=== PATIENT | male | born 1985 | race Caucasian/White ===

== ENCOUNTER → 2021-10-27 | Outpatient (CLI) | payer OTHER ==
[~2021-10-27] MED LIST: MUSCLE RELAXER; NORCO 325 MG-51 TAB PO; PERCOCET 325 MG1 TA2 PO; PROMETHAZINE12.5 M5 PO; ULTRAM 50MG TAB50 MG PO; VIVLODEX5 MG PO
== END ==
LOC: MHCPAIN 10:15
DX: M47.812 Spondylosis without myelopathy or radiculopathy, cervical region (principal); M54.2 Cervicalgia; M54.81 Occipital neuralgia
CPT/HCPCS: G0463

== ENCOUNTER → 2023-09-19 | Outpatient (CLI) | payer OTHER | LOC: MHCPAIN 12:54 | DX: M47.812 Spondylosis without myelopathy or radiculopathy, cervical region (principal); M54.81 Occipital neuralgia; M54.2 Cervicalgia | CPT/HCPCS: G0463 ==

== ENCOUNTER → 2023-10-06 | Outpatient (CLI) | payer OTHER ==
[~2023-10-06] MED LIST changes: +Iohexol 300 - 10 ML VIAL ONE; +Lidocaine PF 2% (20 MG/ML) 2 ML VIAL ONE
== END ==
LOC: MHCPAIN 09:38
DX: M54.12 Radiculopathy, cervical region (principal); M54.81 Occipital neuralgia; M54.2 Cervicalgia
CPT/HCPCS: J1100; Q9967

== ENCOUNTER → 2023-11-01 | Outpatient (CLI) | payer OTHER ==
[~2023-11-01] MED LIST changes: -Iohexol 300 - 10 ML VIAL ONE; -Lidocaine PF 2% (20 MG/ML) 2 ML VIAL ONE
== END ==
LOC: MHCPAIN 09:01
DX: M48.02 Spinal stenosis, cervical region (principal); M47.812 Spondylosis without myelopathy or radiculopathy, cervical region; M54.12 Radiculopathy, cervical region; R51.9 Headache, unspecified
CPT/HCPCS: G0463

== ENCOUNTER → 2023-11-30 | Outpatient (CLI) | payer OTHER | LOC: MHCPAIN 11:10 | DX: M25.511 Pain in right shoulder (principal); M25.561 Pain in right knee; M54.12 Radiculopathy, cervical region; R51.9 Headache, unspecified | CPT/HCPCS: G0463 ==